=== PATIENT | female | born 1995 | race Caucasian/White ===

== ENCOUNTER 2016-08-17 19:26 | Emergency (ER) | payer BC ==
[~2016-08-17] VITALS: Ht 162.6 cm; Wt 58.8 kg
[~2016-08-17 19:26] MED LIST: CHOLTAB3 PO; FOLI1TAB7 PO; LEVE750T PO
[2016-08-17 19:27] VITALS: TEMP 36.8; O2SAT 100; Ht 162.6 cm; Wt 58.8 kg
[2016-08-17] MEDS ORDERED: CHOL400T PO (19:50)
[2016-08-17] MEDS ORDERED: SODIUM CHLORIDE 0.9% 1000ML 1,000 ML IV STA (20:05)
[2016-08-17] MEDS ORDERED: ONDANSETRON INJ 2 MG/ML 2 ML VIAL IV STA (20:05)
--- NOTE | 2016-08-17 20:06 | EMERGENCY ROOM VISIT NOTE ---
History Report prepared by Mirian: Emilie Meza Under the Supervision of: Dr. Ruslan Obrien M.D. First contact with patient: 19:51 Chief Complaint: SEIZURE Stated Complaint: SEIZURE, FALL, FACIAL INJURY Nursing Triage Summary: Per EMS, pt was running on the treadmill at the gym when she had a seizure and fell, hitting face on treadmill. Hx of seizures. Takes Keppra. Last seziure 1 year ago due to suspected dehydration per pt's father. Multiple abrasions to Right cheek, chin, shoulder, and upper arm. Right lip laceration and mid tongue laceration. Right hand abrasion and right fifth finger abrasion. Left knee abrasion and bruise. States she is pain on left right face and tongue. CAOx4 at this time. History of Present Illness The patient is a 21 year old female who presents to the Emergency Room with complaints of a sudden seizure that occurred just prior to arrival. She currently rates her discomfort as a 5/10 in severity. The patient notes that she has a history of seizures, stating that she follows with Dr. Ruth, Neurology. She states that her last seizure was October 17, 2015. The patient denies any recent change in medication, stating that she takes Keppra. She states that today she was on a treadmill when she suddenly had a seizure. The patient notes lip, cheek, and facial pain due to her fall on the treadmill. She denies remembering the seizure today. The patient denies any other pain or injury due to the fall. The patient's father states that the patient has had seizures since she was six months old. He notes that the patient is due for her Keppra at 2000 this evening. Source of History: patient Onset: prior to arrival Position: other (global) Symptom Intensity: 5/10 Quality: other (seizure) Timing: other (suden) Note: Associated Symptoms: lip, cheek, and facial pain. Review of Systems See HPI for pertinent positives & negatives. A total of 10 systems reviewed and were otherwise negative. Past Medical & Surgical Medical Problems: (1) Dehydration (2) Hypokalemia (3) Seizure Family History Heart disease Social History Smoking Status: Never Smoker Marital Status: single Housing Status: lives with family Occupation Status: employed Current/Historical Medications Scheduled Cholecalciferol (Vitamin D), 1 TAB PO DAILY Folic Acid (Folvite), 1 PO DAILY Levetiracetam (Keppra), 1,500 MG PO BID Allergies Coded Allergies: Penicillins (Verified Allergy, Unknown, rash, 10/17/15) Physical Exam Vital Signs Date Time Temp Pulse Resp B/P Pulse Ox O2 Delivery O2 Flow Rate FiO2 08/17/16 23:15 69 18 110/54 97 Room Air 08/17/16 21:23 65 15 113/64 100 Room Air 08/17/16 20:35 75 08/17/16 20:16 80 12 95/60 100 Room Air 08/17/16 19:27 100 Room Air 08/17/16 19:27 36.8 79 15 118/85 100 Room Air Physical Exam GENERAL: Patient is a healthy-appearing well-nourished HEAD: Right side of the face is grossly swollen and tender to the Zygomatic arch. EYES: Ocular movements intact pupils equal and react to light OROPHARYNX mucous membranes are moist no exudates present no erythema or edema present NECK: Supple no nuchal rigidity CHEST: Good equal expansion LUNGS: Clear and equal to auscultation CARDIAC: Normal S1 and S2 ABDOMEN: Soft nontender no guarding BACK: No CVA tenderness EXTREMITIES: No pain upon palpation normal muscle strength in all groups no clubbing cyanosis or edema NEURO: Patient is following commands is answering questions appropriately. Alert and oriented x3 Cranial Nerves 2-12 grossly intact Medical Decision & Procedures ER Provider Diagnostic Interpretation: CT results as stated below per my review and radiologist interpretation: MAXILLOFACIAL CT CT DOSE: 531.69 mGy.cm HISTORY: Trauma Pt c/o Facial trauma TECHNIQUE: Multiaxial CT images of the maxillofacial region were performed and reformatted in the coronal plane without the use of contrast. COMPARISON: None. FINDINGS: Right premaxillary, prefrontal, and right preorbital soft tissue edematous change. Globes appear symmetric. Retroseptal structures are intact. Orbital margins and oral floors appear to be intact. IMPRESSION: No acute process. Soft tissue edema Electronically signed by: Mj Sylvester M.D. 08/17/2016 9:06 PM Dictated Date/Time: 08/17/2016 9:04 PM Laboratory Results 08/17/16 19:30 Red Blood Count 4.43, Mean Corpuscular Volume 90.3, Mean Corpuscular Hemoglobin 30.5, Mean Corpuscular Hemoglobin Concent 33.8, Mean Platelet Volume 12.0, Neutrophils (%) (Auto) 47.9, Lymphocytes (%) (Auto) 43.9, Monocytes (%) (Auto) 6.7, Eosinophils (%) (Auto) 1.2, Basophils (%) (Auto) 0.2, Neutrophils # (Auto) 3.96, Lymphocytes # (Auto) 3.63, Monocytes # (Auto) 0.55, Eosinophils # (Auto) 0.10, Basophils # (Auto) 0.02 08/17/16 19:30 Test 08/17/16 19:30 08/17/16 21:14 White Blood Count 8.27 K/uL (4.8-10.8) Red Blood Count 4.43 M/uL (4.2-5.4) Hemoglobin 13.5 g/dL (12.0-16.0) Hematocrit 40.0 % (37-47) Mean Corpuscular Volume 90.3 fL (80-100) Mean Corpuscular Hemoglobin 30.5 pg (25-34) Mean Corpuscular Hemoglobin Concent 33.8 g/dl (32-36) Platelet Count 205 K/uL (130-400) Mean Platelet Volume 12.0 fL (7.4-10.4) Neutrophils (%) (Auto) 47.9 % Lymphocytes (%) (Auto) 43.9 % Monocytes (%) (Auto) 6.7 % Eosinophils (%) (Auto) 1.2 % Basophils (%) (Auto) 0.2 % Neutrophils # (Auto) 3.96 K/uL (1.4-6.5) Lymphocytes # (Auto) 3.63 K/uL (1.2-3.4) Monocytes # (Auto) 0.55 K/uL (0.11-0.59) Eosinophils # (Auto) 0.10 K/uL (0-0.5) Basophils # (Auto) 0.02 K/uL (0-0.2) RDW Standard Deviation 42.0 fL (36.4-46.3) RDW Coefficient of Variation 12.7 % (11.5-14.5) Immature Granulocyte % (Auto) 0.1 % Immature Granulocyte # (Auto) 0.01 K/uL (0.00-0.02) Anion Gap 19.0 mmol/L (3-11) Est Creatinine Clear Calc Drug Dose 63.0 ml/min Estimated GFR () 73.8 Estimated GFR (Non- 63.7 BUN/Creatinine Ratio 8.1 (10-20) Calcium Level 8.9 mg/dl (8.5-10.1) Phosphorus Level 2.7 mg/dl (2.5-4.9) Magnesium Level 2.0 mg/dl (1.8-2.4) Thyroid Stimulating Hormone (TSH) 2.350 uIu/ml (0.300-4.500) Chemistry Specimen Hemolysis Prothrombin Time 11.3 SECONDS (9.0-12.0) Prothromb Time International Ratio 1.1 (0.9-1.1) Activated Partial Thromboplast Time 26.6 SECONDS (21.0-31.0) Partial Thromboplastin Ratio 1.0 Labs reviewed by ED physician. Medications Administered Medications (Trade) Dose Ordered Sig/Tremayne Route Start Time Stop Time Status Last Admin Dose Admin Ondansetron HCl 4 mg 4 mg NOW STAT IV 08/17/16 20:05 08/17/16 20:07 DC 08/17/16 20:34 4 MG Sodium Chloride (Nss 1000ml) 1,000 ml @ 999 mls/hr Q1H1M STAT IV 08/17/16 20:05 08/17/16 21:05 DC 08/17/16 20:34 999 MLS/HR Ketorolac Tromethamine (Toradol Inj) 30 mg NOW STAT IV 08/17/16 21:38 08/17/16 21:39 DC 08/17/16 22:09 30 MG ED Course 1953: Past medical records reviewed. The patient was evaluated in room B6. A complete history and physical examination was performed. 2004: Ordered Sodium Chloride 1000 ml @ 999 mls/hr IV, Zofran Inj 4 mg IV. 2057: Ordered Lidocaine HCl 20 ml INFIL. The laceration repair was performed by Annette Moore PA-C. See her note for further detail. 2137: Ordered Toradol Inj 30 mg IV. 2234: I reevaluated the patient and she is resting comfortably. I discussed the exam findings with her and her family and I discussed the treatment plan. They verbalized complete understanding and agreement. The patient is ready to go home. Medical Decision Differential diagnosis: Etiologies such as infection, hypoglycemia, electrolyte abnormalities, cardiac sources, intracerebral event, trauma, toxicologic, neurologic, as well as others were entertained. This is a 21-year-old female who presents emergency department after having a seizure on a treadmill. The patient has had a history of seizures in the past and is currently return back to her baseline. She is neurologically intact. She does have significant trauma to her face as well as a laceration to her left. Due to the high volume high acuity in the emergency department the lip laceration was closed by ISIDRO Moore. Using shared medical decision-making as well as the fact that the patient is back to her baseline as well as the fact that the patient has no evidence of meningitis encephalitis on examination, the decision was made not to CAT scan the patient's head due to the radiation exposure. The patient has normal laboratory work was observed for a total of 3 hours in the emergency department. I believe based on these findings at the patient is well enough to be discharged home for follow-up with Dr. Ruth. Patient and parents were in agreement with the treatment plan. Impression Primary Impression: Seizure Additional Impression: Lip laceration Scribe Attestation The scribe's documentation has been prepared under my direction and personally reviewed by me in its entirety. I confirm that the note above accurately reflects all work, treatment, procedures, and medical decision making performed by me. Departure Information Dispostion Home / Self-Care Referrals Tata Monroe D.O. (PCP) Michelle Christine MD Roy, E. Pierre, M.D. Forms HOME CARE DOCUMENTATION FORM, IMPORTANT VISIT INFORMATION, School Instructions, Work Instructions Patient Instructions Black Eye, ED Laceration Facial Sutr Tape, ED Scar Tips to Minimize, ED Seizure Recurrent, My [facility] Additional Instructions Sutures out in 5-7 days Follow up with Dr Ruth's office Apply bacitracin to road rash twice a day Take 600 mg Ibuprofen every 6 hours You have been examined and treated today on an emergency basis only. This is not a substitute for, or an effort to provide, complete comprehensive medical care. It is impossible to recognize and treat all injuries or illnesses in a single emergency department visit. It is therefore important that you follow up closely with Dr Monroe. Call as soon as possible for an appointment. Thank you for your time and consideration. I look forward to speaking with you again soon. Please don't hesitate to call us if you have any questions. Problem Qualifiers Additional Impression: Lip laceration Encounter type: initial encounter Qualified Codes: S01.511A - Laceration without foreign body of lip, initial encounter
[2016-08-17 20:15] LABS: BASO % 0.2 %; BASO ABS # 0.02 K/uL (0-0.2); COMPLETE YES; EOS % 1.2 %; IG% 0.1 %; LYMPH % 43.9 %; LYMPH ABS # 3.63 K/uL (1.2-3.4); MEAN CELL VOLUME 90.3 fL (80-100); MEAN CORPUSCULAR HEMOGLOBIN 30.5 pg (25-34); MEAN CORPUSCULAR HGB CONC 33.8 g/dl (32-36); MONO % 6.7 %; NEUT % 47.9 %; PLATELET COUNT 205 K/uL (130-400); RED BLOOD COUNT 4.43 M/uL (4.2-5.4); WHITE BLOOD COUNT 8.27 K/uL (4.8-10.8)
[2016-08-17 20:25] LABS: BUN/CREATININE RATIO 8.1 (10-20); CALCIUM 8.9 mg/dl (8.5-10.1); CREATININE 1.2 mg/dl (0.60-1.20); POTASSIUM 3.6 mmol/L (3.5-5.1)
[2016-08-17 20:36] LABS: PHOSPHORUS 2.7 mg/dl (2.5-4.9); THYROID STIMULATING HORMONE 2.35 uIu/ml (0.300-4.500)
[2016-08-17] MEDS ORDERED: XYLOCAINE 1%/SOD BICARB 20 ML VIAL INFIL STA (20:58)
--- NOTE | 2016-08-17 21:07 | DIAGNOSTIC IMAGING REPORT ---
MAXILLOFACIAL CT CT DOSE: 531.69 mGy.cm HISTORY: Trauma Pt c/o Facial trauma TECHNIQUE: Multiaxial CT images of the maxillofacial region were performed and reformatted in the coronal plane without the use of contrast. COMPARISON: None. FINDINGS: Right premaxillary, prefrontal, and right preorbital soft tissue edematous change. Globes appear symmetric. Retroseptal structures are intact. Orbital margins and oral floors appear to be intact. IMPRESSION: No acute process. Soft tissue edema Electronically signed by: Mj Sylvester M.D. 08/17/2016 9:06 PM Dictated Date/Time: 08/17/2016 9:04 PM
[2016-08-17 21:38] LABS: INR 1.1 (0.9-1.1); PROTHROMBIN TIME (PATIENT) 11.3 SECONDS (9.0-12.0)
[2016-08-17] MEDS ORDERED: KETOROLAC TROMETHAMINE 30 MG/ML VIAL IV STA (21:38)
[2016-08-17 23:15] VITALS: BP 110/54; PULSE 69; O2SAT 97
--- NOTE | 2016-08-17 23:34 | EMERGENCY ROOM VISIT NOTE ---
ED Visit Note I was asked to perform a laceration repair by Dr. Obrien. Please see his dictation for further physical exam details and patient disposition. Exam reveals a 1 cm laceration to the right upper lip which crosses the vermilion border. There is no additional 1 cm gaping laceration to the inside of the upper lip. Both lacerations appear to be clean and there are no foreign bodies seen in the wounds. There is minimal active bleeding from the inner lip laceration. Verbal consent was obtained to perform the procedure. The wounds were cleansed with sterile saline. The area was sterilely draped. A total of 2 ml of 1% buffered lidocaine was used to anesthetize both lacerations. Once the lacerations were anesthetized the wounds were further irrigated with sterile saline. The outer lip laceration was repaired using 3 simple interrupted 6-0 nylon sutures. The vermilion border was well approximated. The inner lip laceration was repaired using 3 simple interrupted 6-0 chromic gut sutures. Hemostasis was achieved. Suture care instructions were discussed with the patient and family members.
== END 2016-08-17 23:18 | disposition home or self-care (01) ==
LOC: EDBD 19:26 → C.EDB 19:27
DX: R56.9 Unspecified convulsions (principal); S01.511A Laceration without foreign body of lip, initial encounter; W18.01XA Striking against sports equipment with subsequent fall, initial encounter; E86.0 Dehydration; E87.6 Hypokalemia; Z82.49 Family history of ischemic heart disease and other diseases of the circulatory system

== ENCOUNTER 2016-08-23 17:27 | Emergency (ER) | payer BC ==
[~2016-08-23] VITALS: Ht 162.6 cm; Wt 58.0 kg
[~2016-08-23 17:27] MED LIST changes: +CHOL400T PO; -CHOLTAB3 PO
[2016-08-23 17:30] VITALS: BP 125/77; PULSE 83; TEMP 36.8; O2SAT 99; Ht 162.6 cm; Wt 58.0 kg
--- NOTE | 2016-08-23 17:50 | EMERGENCY ROOM VISIT NOTE ---
ED Visit Note First contact with patient: 17:41 CHIEF COMPLAINT: Suture removal HISTORY OF PRESENT ILLNESS: This 21-year-old female patient returns to the ED today for removal of sutures that were placed 7 days ago. There has been no swelling, redness, or drainage from the wound. The patient feels like the laceration is healing well. REVIEW OF SYSTEMS: A 6 system review of systems was completed with positives and pertinent negatives listed in the HPI. PMH: Unchanged from previous visit. ALLERGIES: Penicillin PHYSICAL EXAM: Vital Signs: Reviewed Nurse's notes, vital signs stable. GENERAL : This is a 21-year-old female, in no acute distress. SKIN: There is a sutured wound on the lip with no signs of infection. There is no erythema, swelling, or tenderness. EMERGENCY DEPARTMENT COURSE: 3 sutures were removed without any difficulty and there was no separation of the wound edges. The sutures on the buccal mucosa have dissolved. The right wound inside the mouth seems to be healing well as well. The patient was discharged home in good condition. DIAGNOSIS: Healing laceration and suture removal DISCHARGE INSTRUCTIONS AND TREATMENT: Wash any remaining crusts off of the wound today and resume your normal activities. Problem List Medical Problems: (1) Dehydration Status: Resolved (2) Hypokalemia Status: Resolved (3) Seizure Status: Chronic Current/Historical Medications Scheduled Cholecalciferol (Vitamin D), 1 TAB PO DAILY Folic Acid (Folvite), 1 PO DAILY Levetiracetam (Keppra), 1,500 MG PO BID Allergies Coded Allergies: Penicillins (Verified Allergy, Unknown, rash, 08/23/16) Vital Signs Date Time Temp Pulse Resp B/P Pulse Ox O2 Delivery O2 Flow Rate FiO2 08/23/16 17:30 36.8 83 16 125/77 99 Room Air Departure Information Impression Primary Impression: Encounter for removal of sutures Dispostion Home / Self-Care Condition GOOD Referrals No Doctor, Assigned (PCP) Patient Instructions My [facility] Additional Instructions Wash any remaining crusts off of the wound today and resume your normal activities.
== END 2016-08-23 17:56 | disposition home or self-care (01) ==
LOC: C.EDB 17:28 → C.EDD 17:56
DX: S01.511D Laceration without foreign body of lip, subsequent encounter (principal); G40.909 Epilepsy, unspecified, not intractable, without status epilepticus; Z79.899 Other long term (current) drug therapy; X58.XXXD Exposure to other specified factors, subsequent encounter

== ENCOUNTER → 2016-10-21 | Outpatient (CLI) | payer BC ==
[~2016-10-21] MED LIST changes: +GADAVIST IV PRN
--- NOTE | 2016-10-21 11:32 | DIAGNOSTIC IMAGING REPORT ---
MRI OF THE BRAIN WITHOUT AND WITH IV CONTRAST CLINICAL HISTORY: G40.909 Seizure [id number] COMPARISON STUDY: No previous studies for comparison. TECHNIQUE: MRI of the brain was performed from the vertex to the skull base utilizing various T1 and T2 weighted sequences. Following the IV administration of 5.5 mL of Gadavist contrast, additional enhanced images were obtained. FINDINGS: Sagittal T1, axial diffusion, proton density and T2 weighted axial, coronal FLAIR, and pre and post axial T1-weighted images were acquired. These were supplemented with post gadolinium coronal T1 weighted images. No intra or extra-axial mass lesions are visualized. Axial diffusion-weighted images reveal no evidence of acute or subacute infarction. There is no evidence of ventricular dilatation. Proton density T2-weighted and FLAIR images reveal scattered foci of increased T2 signal within the white matter, likely on a small vessel basis. There are no abnormal flow voids. There is no evidence of pathologic enhancement. Thin section coronal T2-weighted images through the temporal lobes reveal symmetric hippocampus formations IMPRESSION: Normal MRI of the brain. Electronically signed by: Daniel Hall M.D. 10/21/2016 11:31 AM Dictated Date/Time: 10/21/2016 11:29 AM
== END | disposition home or self-care (01) ==
LOC: C.MRIBC 10:43
PROVIDERS: ATTEND Psychiatry & Neurology Neurology
DX: G40.909 Epilepsy, unspecified, not intractable, without status epilepticus (principal)